=== PATIENT | male | born 1980 | race Caucasian/White ===

== ENCOUNTER 2021-02-02 14:22 | Emergency (ER) | payer BC ==
[~2021-02-02] VITALS: Ht 170.2 cm; Wt 90.7 kg
[~2021-02-02 14:22] MED LIST: Flomax0.4 MG PO; HYDR1TAB94 PO; OMEPRAZOLE MAGN20 MG PO; ONDA4ODT PO; SENN187 PO
[2021-02-02] MEDS ORDERED: LIDO700A20 TOP (16:27)
[2021-02-02] MEDS ORDERED: CYCL10 PO (16:27)
== END 2021-02-02 16:34 | disposition home or self-care (01) ==
LOC: ER 14:22
DX: S46.812A Strain of other muscles, fascia and tendons at shoulder and upper arm level, left arm, initial encounter (principal); M54.41 Lumbago with sciatica, right side; K21.9 Gastro-esophageal reflux disease without esophagitis; Z79.899 Other long term (current) drug therapy; Z87.891 Personal history of nicotine dependence; X58.XXXA Exposure to other specified factors, initial encounter; Y92.89 Other specified places as the place of occurrence of the external cause; Y99.0 Civilian activity done for income or pay
CPT/HCPCS: 99282